=== PATIENT | female | born 1990 ===

== ENCOUNTER → 2022-08-20 | Outpatient (CLI) | payer SELFPAY ==
[2022-08-22 05:11] LABS: CHLAMYDIA TRACHOMATIS, NAA Negative (Negative)
== END | disposition home or self-care (01) ==
LOC: LAB SHORT 10:30
PROVIDERS: Obstetrics & Gynecology
DX: Z34.01 Encounter for supervision of normal first pregnancy, first trimester (principal)
CPT/HCPCS: 87491; 87591